=== PATIENT | female | born 1945 | race Caucasian/White ===

== ENCOUNTER 2019-11-05 05:29 | Emergency (ER) | payer MEDICARE, OTHER ==
[~2019-11-05] VITALS: Ht 160 cm; Wt 77.1 kg
[~2019-11-05 05:29] MED LIST: ASPIR-LOW81 MG PO; ATENOLOL25 MG PO; AUGMENTIN 875-1 EACH PO; CITRACAL + BON1 EACH PO; CLARITIN-D 241 EACH PO; DAILY VITAMIN1 EAC2 PO; FENOFIBRATE160 MG PO; FLAXSEED OIL1000 M1 PO; FOLIC ACID0.4 MG PO; GLUCOSAMINE 1,1 EACH PO; GUAIFENESIN AC473 ML PO; IRON45 MG PO; LANSOPRAZOLE30 MG PO; MELATONIN3 MG PO; NORCO 5-325 TA1 EACH PO; NORTRIPTYLINE H25 MG PO; OMEPRAZOLE40 MG PO; RESTASIS1 DROP OD; TEGRETOL200 MG PO; TUMS200 MG PO; TYLENOL325 MG PO; VENLAFAXINE HCL75 MG PO; VITAMIN C250 MG PO; VITAMIN D31000 UNI1 PO; [UNRECOGNIZED DRUG - OTHER] PO
[2019-11-05] MEDS ORDERED: CITRACAL + D E1 EACH PO (05:58)
[2019-11-05] MEDS ORDERED: RESTASIS1 DROP OD (05:58)
[2019-11-05] MEDS ORDERED: NORCO 5-325 TA1 EACH PO (07:59)
== END 2019-11-05 08:09 | disposition home or self-care (01) ==
LOC: ED 05:29
DX: M54.5 Low back pain (principal); I10 Essential (primary) hypertension; F32.9 Major depressive disorder, single episode, unspecified; Z79.899 Other long term (current) drug therapy
CPT/HCPCS: 71045; 74177; 80053; 81001; 83690; 85025; 99284-25; J1170; J1885; J2405; J7030; Q9967

== ENCOUNTER 2022-05-06 17:31 | Emergency (ER) | payer MEDICARE, OTHER ==
[~2022-05-06] VITALS: Ht 160 cm; Wt 87.1 kg
[~2022-05-06 17:31] MED LIST changes: +CITRACAL + D E1 EACH PO
[2022-05-06] MEDS ORDERED: NORVASC5 MG PO (18:01)
[2022-05-06] MEDS ORDERED: CRESTOR20 MG PO (18:02)
[2022-05-06] MEDS ORDERED: CITALOPRAM HBR40 MG PO (18:03)
[2022-05-06] MEDS ORDERED: VITAMIN D310 MC1 PO (18:04)
[2022-05-06] MEDS ORDERED: ARTHRITIS PAIN150 GM (18:05)
[2022-05-06] MEDS ORDERED: MELATONIN3 MG PO (18:08)
--- NOTE | 2022-05-07 02:44 | EKG ---
[facility] [address] [place], [place] [address] Signed Normal sinus rhythm Left ventricular hypertrophy with repolarization abnormality ( R in aVL , Michel product , Romhilt-Velazquez ) Cannot rule out Anterior infarct , age undetermined Abnormal ECG No previous ECGs available Confirmed by KYLE SALMON MD ([id number]) on 05/07/2022 2:43:47 AM Electronically Signed By: KYLE SALMON MD 05/07/22 0244 PATIENT NAME: TAMIEZANE Electrocardiogram DATE OF : 49 PHYSICIAN: KYLE SALMON MD REPORT #: [id number] REPORT IS CONFIDENTIAL AND NOT TO BE RELEASED WITHOUT AUTHORIZATION
== END 2022-05-06 20:39 | disposition home or self-care (01) ==
LOC: ED 17:31
DX: R42 Dizziness and giddiness (principal); I10 Essential (primary) hypertension; Z79.899 Other long term (current) drug therapy
CPT/HCPCS: 36415; 70450; 71045; 80053; 85025; 93005; 93010

== ENCOUNTER 2024-02-12 08:26 | Emergency (ER) | payer MEDICARE, OTHER ==
[~2024-02-12] VITALS: Ht 160 cm; Wt 85.4 kg
[~2024-02-12 08:26] MED LIST changes: +ARTHRITIS PAIN150 GM; +CITALOPRAM HBR40 MG PO; +CRESTOR20 MG PO; +NORVASC5 MG PO; +VITAMIN D310 MC1 PO
[2024-02-12 08:53] LABS: BASOPHILS 0.7 % (0-2); EOSINOPHILS 2.3 % (0-6); HEMATOCRIT 43.1 % (35.0-50.0); HEMOGLOBIN 14.3 g/dL (12.0-18.0); LYMPHOCYTES 22.6 % (24-44); MCH 28.2 (27-36); MCHC 33.2 g/dl (30-36); MCV 84.9 fl (81-99); NEUTROPHILS 67.4 % (39-80); PLATELET COUNT 306 K/uL (140-440); RBC 5.07 M/ul (4.3-5.7); RDW 13.9 (10.5-15.0)
[2024-02-12 09:11] LABS: ALBUMIN 3.6 g/dL (3.4-5.0); BILIRUBIN, TOTAL 0.4 ng/dL (0.2-1.0); BUN/CREATININE RATIO 17.14 (6.0-28.6); CREATININE, SERUM 0.7 mg/dL (0.55-1.02); PROTEIN, TOTAL 7.2 g/dL (6.4-8.2)
[2024-02-12] MEDS ORDERED: GABAPENTIN300 MG PO (11:25)
[2024-02-12] MEDS ORDERED: ONDANSETRON ODT8 MG PO (11:46)
[2024-02-12 11:58] VITALS: BP 140/76
== END 2024-02-12 12:00 | disposition home or self-care (01) ==
LOC: ED 08:26
PROVIDERS: Emergency Medicine
DX: R42 Dizziness and giddiness (principal); I67.1 Cerebral aneurysm, nonruptured; I10 Essential (primary) hypertension; Z79.899 Other long term (current) drug therapy
CPT/HCPCS: 36415; 70450; 70496; 70498; 80053; 85025; 99284-25; Q9967